=== PATIENT | male | born 1975 | race Hispanic/Latino ===

== ENCOUNTER 2017-04-13 15:10 | Inpatient (IN) | payer MEDICAID, OTHER ==
--- NOTE | 2017-04-13 15:59 | ED PDOC ---
Arrival/HPI - General Chief Complaint: Psychiatric Evaluation Time Seen by Provider: 04/13/17 15:12 Historian: Patient - History of Present Illness Narrative History of Present Illness (Text): 04/13/17 15:55 41yr old male presents today with brought in by ambulance for PES evaluation. pt with psychiatric hx found walking in the street acting bizarre. Pt states people are following him and that he has been trying to get in touch with the police for the past week. pt states he has been staying in his room. pt denies cp or sob. no vomiting/diarrhea. no dizziness. denies trauma or injury. Time/Duration: Prior to Arrival Past Medical History - Provider Review Nursing Documentation Reviewed: Yes - Travel History Have you recently traveled outside [place] w/in the past 3 mons?: No - Infectious Disease Hx of Infectious Diseases: None - Tetanus Immunization Tetanus Immunization: Unknown - Cardiac Hx Cardiac Disorders: No Hx Hypertension: No - Pulmonary Hx Tuberculosis: No - Neurological HX Cerebrovascular Accident: No Hx Seizures: No - Hematological/Oncological Hx Cancer: No - Genitourinary/Gynecological Hx Sexually Transmitted Diseases: No - Psychiatric Hx Depression: No Hx Emotional Abuse: No Hx Physical Abuse: No Hx Substance Use: (unknown) - Surgical History Other/Comment: neck surgery - Anesthesia Hx Anesthesia: Yes - Suicidal Assessment Feels Threatened In Home Enviroment: No Family/Social History - Physician Review Nursing Documentation Reviewed: Yes Family/Social History: Unknown Family HX Smoking Status: Heavy Smoker > 10 Cigarettes Daily Hx Alcohol Use: (unknown) Hx Substance Use: (unknown) Allergies/Home Meds Allergies/Adverse Reactions: Allergies No Known Allergies Allergy (Verified 04/13/17 21:19) Home Medications: Home Meds Medication Instructions Recorded Confirmed Unobtainable 07/22/16 04/13/17 Review of Systems - Review of Systems Systems not reviewed;Unavailable: Psychotic Respiratory: absent: SOB Cardiovascular: absent: Chest Pain Gastrointestinal: absent: Abdominal Pain Neurological: absent: Headache Psychiatric: absent: Anxiety, Suicidal Ideation Physical Exam Vital Signs Reviewed: Yes Vital Signs Temp Pulse Resp BP Pulse Ox 04/13/17 21:06 98.2 F 92 H 16 121/70 97 04/13/17 19:58 91 H 16 130/69 95 04/13/17 19:18 90 16 105/68 97 04/13/17 18:30 120 H 18 135/103 H 96 04/13/17 15:33 98.4 F 126 H 18 124/87 98 Temperature: Afebrile Blood Pressure: Normal Pulse: Tachycardic Respiratory Rate: Normal Appearance: Positive for: Well-Appearing, Non-Toxic, Comfortable Pain Distress: None Mental Status: Positive for: Alert and Oriented X 3 - Systems Exam Head: Present: Atraumatic Respiratory/Chest: Present: Clear to Auscultation Cardiovascular: Present: Tachycardic Abdomen: No: Tenderness Back: Present: Normal Inspection Upper Extremity: Present: Normal ROM Lower Extremity: Present: Normal ROM Neurological: Present: GCS=15 Skin: Present: Warm, Dry. No: Rashes Psychiatric: Present: Alert, Anxious, Delusional, Hallucinations, Other ( paranoid) Medical Decision Making ED Course and Treatment: 04/13/17 15:58 Patient is nontoxic well-appearing in no distress paranoid, anxious, answering questions in a bizarre manner, easily distracted. CBC wbc; 14.7 CMP glucose 67 CPK: 10,408 Tylenol WNL Salicylate WNL Alcohol level WNL Urine drug screen negative UA; blood, no leukocytes cxr: wnl ekg: sinus tachycardia at 119 bpm incomplete right bundle branch block and no ST elevations Patient was seen by PES director of securities and real estate [employer]is. Patient became aggressive in the emergency room. Geodon given. Restraints applied. pt in rhabdomyolysis. Normal saline IV bolus given case discussed with resident dr. argueta and dr. Camelia huber; accepts admission for rhabdo. pt will need psych eval. case discussed with dr. roberts. Impression; psychosis, rhabdomyolysis Admit med/surg - Lab Interpretations Lab Results: 04/13/17 16:25 04/13/17 16:25 Lab Results 04/13/17 16:25: Alcohol, Quantitative < 10 04/13/17 16:25: Salicylates < 1 L, Acetaminophen < 10.0 L 04/13/17 16:25: Sodium 142, Potassium 4.1, Chloride 103, Carbon Dioxide 24, Anion Gap 19, BUN 19, Creatinine 1.1, Est GFR ( Amer) > 60, Est GFR (Non- Af Amer) > 60, Random Glucose 67 L, Calcium 10.0, Total Bilirubin 1.6 H, AST 152 H, ALT 70 H, Alkaline Phosphatase 74, Total Creatine Kinase 82565 H, CK-MB ( CK-2) 5.9 H, CK-MB (CK-2) % 0.1 L, Total Protein 8.1, Albumin 4.8, Globulin 3.3 , Albumin/Globulin Ratio 1.5 04/13/17 16:25: WBC 14.7 H, RBC 5.54, Hgb 13.2 L, Hct 38.9 L, MCV 70.2 L, MCH 23.8 L, MCHC 33.9, RDW 14.3, Plt Count 358, MPV 8.7, Gran % 79.1 H, Lymph % ( Auto) 14.0 L, Barron % (Auto) 6.5 H, Eos % (Auto) 0.2 L, Baso % (Auto) 0.2, Gran # 11.62 H, Lymph # 2.1, Barron # 1.0 H, Eos # 0.0, Baso # 0.03 - RAD Interpretation Radiology Orders: 04/13/17 15:31 CHEST PORTABLE [RAD] Stat - Medication Orders Current Medication Orders: Folic Acid 1 mg/ Thiamine HCl 100 mg/ Multivitamins/Vitamin C 10 ml/ Dextrose 1 ,011.2 mls @ 100 mls/hr IV .Q10H7M [facility] Sodium Chloride (Sodium Chloride 0.9%) 1,000 mls @ 200 mls/hr IV .Q5H [facility] Folic Acid 1 mg/ Sodium (Chloride) 50.2 mls @ 200 mls/hr IV DAILY [facility]AD[facility] Dextrose/Sodium Chloride (Dextrose 5%/0.9% Ns 1000 Ml) 1,000 mls @ 100 mls/hr IV .Q10H [facility] Lorazepam (Ativan) 1 mg IVP Q4 PRN; Protocol PRN Reason: Symptoms of alcohol withdrawl Multivitamins/Minerals (Therapeutic-M Tab) 1 tab PO 0800 [facility] Ondansetron HCl (Zofran Inj) 4 mg IVP Q6 PRN PRN Reason: Nausea/Vomiting Pantoprazole Sodium (Protonix Ec Tab) 40 mg PO DAILY [facility] Thiamine HCl (Vitamin B1 Tab) 50 mg PO DAILY [facility] Ziprasidone (Geodon Inj) 20 mg IM Q6 PRN; Protocol PRN Reason: Agitation Discontinued Medications Sodium Chloride (Sodium Chloride 0.9%) 1,000 mls @ 999 mls/hr IV .Q1H1M STA Stop: 04/13/17 19:37 Last Admin: 04/13/17 18:51 Dose: 999 mls/hr Lorazepam (Ativan) 2 mg IM ONCE ONE PRN Reason: Protocol Stop: 04/13/17 18:19 Last Admin: 04/13/17 18:56 Dose: Lorazepam (Ativan) Confirm Administered Dose 2 mg .ROUTE .STK-MED ONE Stop: 04/13/17 18:20 Last Admin: 04/13/17 18:56 Dose: Ziprasidone (Geodon Inj) 20 mg IM STAT STA PRN Reason: Protocol Stop: 04/13/17 18:04 Last Admin: 04/13/17 18:29 Dose: 20 mg Disposition/Present on Arrival - Present on Arrival Any Indicators Present on Arrival: No History of DVT/PE: No History of Uncontrolled Diabetes: No Urinary Catheter: No History of Decub. Ulcer: No History Surgical Site Infection Following: None - Disposition Have Diagnosis and Disposition been Completed?: Yes Diagnosis: Rhabdomyolysis, Psychosis Disposition: HOSPITALIZED Disposition Time: 18:54 Patient Plan: Admission Patient Problems: Current Active Problems Problem Status Onset Psychosis Acute Rhabdomyolysis Acute Condition: FAIR
--- NOTE | 2017-04-13 16:20 | RAD ---
HISTORY: pes eval COMPARISON: Single frontal portable chest 07/23/2016. FINDINGS: LUNGS: No active pulmonary disease. PLEURA: No significant pleural effusion identified, no pneumothorax apparent. CARDIOVASCULAR: Normal. OSSEOUS STRUCTURES: Incidental note is made of prior cervical spinal fusion hardware, partially captured in this exam. VISUALIZED UPPER ABDOMEN: Normal. OTHER FINDINGS: None. IMPRESSION: No acute cardiopulmonary is appreciated or significant interval change 07/23/2016.
[2017-04-13 16:36] LABS: ADD MANUAL DIFF? NO
[2017-04-13 16:49] LABS: BASO # 0.03 K/mm3 (0.0-2.0); BASO % 0.2 % (0.0-3.0); EOS % 0.2 % (1.5-5.0); GRAN # 11.62 (1.4-6.5); GRAN % 79.1 % (50.0-68.0); HEMATOCRIT 38.9 % (42.0-52.0); LYMPH # 2.1 (1.2-3.4); MEAN CELL VOLUME 70.2 fL (80.0-105.0); MEAN CORPUSCULAR HEMOGLOBIN 23.8 pg (25.0-35.0); MEAN CORPUSCULAR HGB CONC 33.9 g/dl (31.0-37.0); MEAN PLATELET VOLUME 8.7 fl (7.0-11.0); MONO % 6.5 % (1.0-6.0); PLATELET COUNT 358 10^3/uL (120.0-450.0); RED CELL DISTRIBUTION WIDTH 14.3 % (11.5-14.5); WHITE BLOOD COUNT 14.7 10^3/ul (4.5-11.0)
[2017-04-13 16:51] LABS: ALB/GLOB RATIO 1.5 (1.1-1.8); ALKALINE PHOSPHATASE 74 U/L (38-133); ALT/SGPT 70 U/L (7-56); AST/SGOT 152 U/L (15-59); BILIRUBIN,TOTAL 1.6 mg/dL (0.2-1.3); BLOOD UREA NITROGEN 19 mg/dL (7-21); CARBON DIOXIDE 24 mmol/L (21-33); CHLORIDE 103 mmol/L (98-107); GFR AFRICAN-AMERICAN > 60; GLUCOSE,RANDOM 67 mg/dL (70-110); POTASSIUM 4.1 mmol/L (3.6-5.0); SODIUM 142 mmol/L (132-148); TOTAL PROTEIN 8.1 g/dL (5.8-8.3)
[2017-04-13] MEDS ORDERED: Sodium Chloride 0.9% 1,000 ML IV STA (18:37)
[2017-04-13] MEDS ORDERED: Folic Acid 1 MG, Thiamine 100 MG, Multivitamin (MVI) 10 ML in Dextrose 5% In Water 1,00... IV SCH (20:30)
[2017-04-13] MEDS ORDERED: Dextrose 5%/0.9% NS 1,000 ML IV SCH (20:45)
[2017-04-13 21:17] LABS: URINE BILIRUBIN SMALL (NEGATIVE); URINE BLOOD TRACE-INTACT (NEGATIVE); URINE GLUCOSE (UA) NEGATIVE (NEGATIVE); URINE KETONE NEGATIVE (NEGATIVE); URINE LEUKOCYTE ESTERASE NEGATIVE Leu/uL (NEGATIVE); URINE PROTEIN 30 mg/dL (<30 mg/dL); URINE UROBILINOGEN 0.2 E.U./dL (<1 E.U./dL)
[2017-04-13 21:31] LABS: URINE APPEARANCE CLEAR (CLEAR); URINE COLOR YELLOW (YELLOW)
[2017-04-13 21:45] VITALS: BMI 22.3
[2017-04-13 22:07] LABS: URINE BACTERIA MOD (NEG); URINE CALCIUM OXALATE CRYSTALS RARE /hpf; URINE RBC 0 - 2 /hpf (0-2); URINE WBC 0 - 2 /hpf (0-6)
[2017-04-13] MEDS ORDERED: Multivitamin (MVI) 10 ML, Thiamine 100 MG, Folic Acid 1 MG in Dextrose 5% In Water 1,00... IV ONE ×2 (23:35→23:51)
[2017-04-14] MEDS: Sodium Chloride 0.9% 1,000 ML IV SCH ×3 (01:19→11:48)
--- NOTE | 2017-04-14 01:39 | CP.PCM.HP ---
<DILEEP LOPEZ - Last Filed: 04/14/17 01:31> History of Present Illness - History of Present Illness History of Present Illness: CC: AMS HPI: Mr. Cottrell is a 41 year old with a PMH significant for drug induced mood disorder presented today after being brought in by ambulance for evaluation. Police found patient walking in the street acting bizarre. Patient states that people are following him and that he has been trying to get in touch with the police for the past week. He claims that this all started when he bought a new cell phone two days ago. Patient states has been staying in his room to ED physician but now reports that hes been helping his aunt move out of her house during this time. In ED, patient was found to have a CK of over 10,000. Patient denies headache, dizziness, changes in vision, chest pain, shortness of breath, abdominal pain, N/V, diarrhea or any trauma or injury PMH: Denies PSH: Denies Family History: non-contributory Social History: smokes 3 cigars per day, denies alcohol and any illicit drugs for over 8 months Allergies: NKDA Medications: none Present on Admission - Present on Admission Any Indicators Present on Admission: No Review of Systems - Review of Systems Review of Systems: Please refer to HPI Past Patient History - Infectious Disease Hx of Infectious Diseases: None - Tetanus Immunizations Tetanus Immunization: Unknown - Past Social History Smoking Status: Heavy Smoker > 10 Cigarettes Daily - CARDIAC Hx Cardiac Disorders: No Hx Hypertension: No - PULMONARY Hx Tuberculosis: No - NEUROLOGICAL HX Cerebrovascular Accident: No Hx Seizures: No - HEMATOLOGICAL/ONCOLOGICAL Hx Cancer: No - MUSCULOSKELETAL/RHEUMATOLOGICAL Hx Falls: No - GENITOURINARY/GYNECOLOGICAL Hx Sexually Transmitted Disorders: No - PSYCHIATRIC Hx Depression: No Hx Emotional Abuse: No Hx Physical Abuse: No Hx Substance Use: (unknown) - SURGICAL HISTORY Other/Comment: neck surgery - ANESTHESIA Hx Anesthesia: Yes Meds Allergies/Adverse Reactions: Allergies Allergy/AdvReac Type Severity Reaction Status Date / Time No Known Allergies Allergy Verified 04/13/17 21:19 Physical Exam - Constitutional Appears: No Acute Distress - Head Exam Head Exam: NORMAL INSPECTION, NORMOCEPHALIC - Eye Exam Eye Exam: EOMI, Normal appearance - ENT Exam ENT Exam: Mucous Membranes Moist, Normal Exam - Neck Exam Neck exam: Positive for: Full Rom. Negative for: Lymphadenopathy - Respiratory Exam Respiratory Exam: Clear to Auscultation Bilateral, NORMAL BREATHING PATTERN. absent: Rales, Rhonchi, Wheezes, Respiratory Distress - Cardiovascular Exam Cardiovascular Exam: REGULAR RHYTHM, RRR, +S1, +S2, Systolic Murmur - GI/Abdominal Exam GI & Abdominal Exam: Normal Bowel Sounds. absent: Distended, Firm, Tenderness - Extremities Exam Extremities exam: Positive for: normal capillary refill, pedal pulses present. Negative for: calf tenderness, pedal edema, tenderness - Neurological Exam Neurological exam: Alert - Psychiatric Exam Psychiatric exam: Normal Affect, Normal Mood - Skin Skin Exam: Dry, Intact, Normal Color, Warm Results - Vital Signs Recent Vital Signs: Last Vital Signs Temp 98.2 F 04/13/17 21:30 Pulse 92 H 04/13/17 21:30 Resp 16 04/13/17 21:30 BP 121/70 04/13/17 21:30 Pulse Ox 97 04/13/17 21:06 - Labs Result Diagrams: 04/13/17 16:25 04/13/17 16:25 Labs: Laboratory Results - last 24 hr 04/13/17 04/13/17 04/13/17 20:30 20:30 20:34 POC Glucose (mg/dL) 54 L Troponin I Urine Color Yellow Urine Appearance Clear Urine pH 6.0 Ur Specific [place] 1.025 Urine Protein 30 H Urine Glucose (UA) Negative Urine Ketones Negative Urine Blood Trace-intact H Urine Nitrate Negative Urine Bilirubin Small H Urine Urobilinogen 0.2 Ur Leukocyte Esterase Negative Urine RBC 0 - 2 Urine WBC 0 - 2 Ur Epithelial Cells None Calcium Oxalate Crystal Rare Urine Bacteria Mod Urine Opiates Screen Negative Urine Methadone Screen Negative Ur Barbiturates Screen Negative Ur Phencyclidine Scrn Negative Ur Amphetamines Screen Negative U Benzodiazepines Scrn Negative U Oth Cocaine Metabols Negative U Cannabinoids Screen Negative 04/13/17 04/13/17 20:56 23:50 POC Glucose (mg/dL) 89 Troponin I < 0.01 Urine Color Urine Appearance Urine pH Ur Specific [place] Urine Protein Urine Glucose (UA) Urine Ketones Urine Blood Urine Nitrate Urine Bilirubin Urine Urobilinogen Ur Leukocyte Esterase Urine RBC Urine WBC Ur Epithelial Cells Calcium Oxalate Crystal Urine Bacteria Urine Opiates Screen Urine Methadone Screen Ur Barbiturates Screen Ur Phencyclidine Scrn Ur Amphetamines Screen U Benzodiazepines Scrn U Oth Cocaine Metabols U Cannabinoids Screen Assessment & Plan - Assessment and Plan (Free Text) Assessment: Mr. Cottrell is a 41 year old man with a PMH significant for drug induced mood disorder presented today for AMS and later found to have elevated CK. Plan: 1. Rhabdomyolysis -normal saline 200mls/hour 2. Psychosis/Agitation -psychiatry consulted 3. History of Alcohol Abuse -banana bag, folate, thiamine, MV -Ativan PRN -Zofran PRN -CIWA, aspiration and seizure protocols 4. Leukocytosis -blood/urine culture -vital signs Q8 5. Elevated LFT's -hepatitis panel 6. GI/DVT Prophylaxis -protonix/scd's Patient seen and case discussed with attending, Dr. Rodriguez. - Date & Time Date: 04/14/17 Time: 01:41 Decision To Admit - Pt Status Changed To: Hospital Disposition Of: Observation - . Bed Request Type: Telemetry <Maci Rodriguez - Last Filed: 04/14/17 02:17> Results - Vital Signs Recent Vital Signs: Last Vital Signs Temp 98.2 F 04/13/17 21:30 Pulse 92 H 04/13/17 21:30 Resp 16 04/13/17 21:30 BP 121/70 04/13/17 21:30 Pulse Ox 97 04/13/17 21:06 - Labs Result Diagrams: 04/13/17 16:25 04/13/17 16:25 Labs: Laboratory Results - last 24 hr 04/13/17 04/13/17 04/13/17 20:30 20:30 20:34 POC Glucose (mg/dL) 54 L Troponin I Urine Color Yellow Urine Appearance Clear Urine pH 6.0 Ur Specific [place] 1.025 Urine Protein 30 H Urine Glucose (UA) Negative Urine Ketones Negative Urine Blood Trace-intact H Urine Nitrate Negative Urine Bilirubin Small H Urine Urobilinogen 0.2 Ur Leukocyte Esterase Negative Urine RBC 0 - 2 Urine WBC 0 - 2 Ur Epithelial Cells None Calcium Oxalate Crystal Rare Urine Bacteria Mod Urine Opiates Screen Negative Urine Methadone Screen Negative Ur Barbiturates Screen Negative Ur Phencyclidine Scrn Negative Ur Amphetamines Screen Negative U Benzodiazepines Scrn Negative U Oth Cocaine Metabols Negative U Cannabinoids Screen Negative 04/13/17 04/13/17 04/14/17 20:56 23:50 01:57 POC Glucose (mg/dL) 89 178 H Troponin I < 0.01 Urine Color Urine Appearance Urine pH Ur Specific [place] Urine Protein Urine Glucose (UA) Urine Ketones Urine Blood Urine Nitrate Urine Bilirubin Urine Urobilinogen Ur Leukocyte Esterase Urine RBC Urine WBC Ur Epithelial Cells Calcium Oxalate Crystal Urine Bacteria Urine Opiates Screen Urine Methadone Screen Ur Barbiturates Screen Ur Phencyclidine Scrn Ur Amphetamines Screen U Benzodiazepines Scrn U Oth Cocaine Metabols U Cannabinoids Screen
[2017-04-14] MEDS ORDERED: Oxycodone/Acetaminophen 5/325 mg Tab PO ONE ×2 (06:49→09:44)
[2017-04-14 07:37] LABS: ADD MANUAL DIFF? NO
[2017-04-14 07:43] LABS: BASO # 0.03 K/mm3 (0.0-2.0); BASO % 0.3 % (0.0-3.0); EOS # 0.2 (0.0-0.7); EOS % 1.3 % (1.5-5.0); GRAN # 8.53 (1.4-6.5); GRAN % 75.4 % (50.0-68.0); HEMATOCRIT 34.9 % (42.0-52.0); LYMPH # 1.9 (1.2-3.4); LYMPH % 16.7 % (22.0-35.0); MEAN CELL VOLUME 71.2 fL (80.0-105.0); MEAN CORPUSCULAR HEMOGLOBIN 23.3 pg (25.0-35.0); MEAN CORPUSCULAR HGB CONC 32.7 g/dl (31.0-37.0); MEAN PLATELET VOLUME 8.7 fl (7.0-11.0); MONO # 0.7 (0.1-0.6); MONO % 6.3 % (1.0-6.0); PLATELET COUNT 278 10^3/uL (120.0-450.0); RED CELL DISTRIBUTION WIDTH 14.5 % (11.5-14.5); WHITE BLOOD COUNT 11.3 10^3/ul (4.5-11.0)
[2017-04-14 07:53] LABS: ALB/GLOB RATIO 1.3 (1.1-1.8); ALKALINE PHOSPHATASE 50 U/L (38-133); ALT/SGPT 51 U/L (7-56); AST/SGOT 82 U/L (15-59); BILIRUBIN,TOTAL 1.2 mg/dL (0.2-1.3); BLOOD UREA NITROGEN 12 mg/dL (7-21); CALCIUM 8.6 mg/dL (8.4-10.5); CARBON DIOXIDE 24 mmol/L (21-33); CHLORIDE 106 mmol/L (98-107); GFR AFRICAN-AMERICAN > 60; GLUCOSE,RANDOM 73 mg/dL (70-110); PHOSPHOROUS 3.4 mg/dL (2.5-4.5); POTASSIUM 3.7 mmol/L (3.6-5.0); SODIUM 139 mmol/L (132-148); TOTAL PROTEIN 6.1 g/dL (5.8-8.3)
[2017-04-14] MEDS: Multivitamin With Minerals Tab PO SCH (09:57)
[2017-04-14] MEDS: Pantoprazole 40 mg EC Tab PO SCH (09:57)
[2017-04-14] MEDS ORDERED: Folic Acid 1 MG in Sodium Chloride 0.9% 50 ML IV SCH (10:00)
--- NOTE | 2017-04-14 16:32 | CP.PCM.PCO ---
Physician Communication Note - Physician Communication Note Physician Communication Note: will be seen tomorrow
--- NOTE | 2017-04-14 18:43 | CARD ---
APPROVED REPORT EKG Measurement Heart [id number] <Conclusion> Sinus tachycardia Incomplete right bundle branch block Borderline ECG
[2017-04-15] MEDS: Sodium Chloride 0.9% 1,000 ML IV SCH ×2 (01:28→21:37)
[2017-04-15 08:01] LABS: ADD MANUAL DIFF? NO
[2017-04-15 08:05] LABS: BASO # 0.04 K/mm3 (0.0-2.0); BASO % 0.6 % (0.0-3.0); EOS # 0.2 (0.0-0.7); EOS % 3.2 % (1.5-5.0); GRAN # 4.25 (1.4-6.5); GRAN % 60.9 % (50.0-68.0); HEMATOCRIT 32.8 % (42.0-52.0); LYMPH # 1.9 (1.2-3.4); LYMPH % 26.7 % (22.0-35.0); MEAN CELL VOLUME 72.2 fL (80.0-105.0); MEAN CORPUSCULAR HEMOGLOBIN 23.3 pg (25.0-35.0); MEAN CORPUSCULAR HGB CONC 32.3 g/dl (31.0-37.0); MEAN PLATELET VOLUME 8.7 fl (7.0-11.0); MONO # 0.6 (0.1-0.6); MONO % 8.6 % (1.0-6.0); PLATELET COUNT 252 10^3/uL (120.0-450.0); RED CELL DISTRIBUTION WIDTH 14.7 % (11.5-14.5)
[2017-04-15 08:57] LABS: ALKALINE PHOSPHATASE 48 U/L (38-133); ALT/SGPT 44 U/L (7-56); AST/SGOT 40 U/L (15-59); BILIRUBIN,TOTAL 0.2 mg/dL (0.2-1.3); BLOOD UREA NITROGEN 7 mg/dL (7-21); CALCIUM 7.9 mg/dL (8.4-10.5); CARBON DIOXIDE 24 mmol/L (21-33); CHLORIDE 110 mmol/L (95-110); GFR AFRICAN-AMERICAN > 60; GLUCOSE,RANDOM 85 mg/dL (70-110); PHOSPHOROUS 3.5 mg/dL (2.5-4.5); POTASSIUM 3.9 mmol/L (3.6-5.0); SODIUM 141 mmol/L (132-148); TOTAL PROTEIN 5.2 g/dL (5.8-8.3)
[2017-04-15] MEDS: Pantoprazole 40 mg EC Tab PO SCH (09:02)
[2017-04-15] MEDS: Multivitamin With Minerals Tab PO SCH (09:02)
[2017-04-15 09:10] LABS: ALB/GLOB RATIO 1.3 (1.1-1.8)
--- NOTE | 2017-04-15 16:57 | CON ---
HISTORY OF PRESENT ILLNESS: The patient is a [id number] male with reported history of synthetic drugs. The patient used Monica in the past. The patient was admitted on the medical side for rhabdomyolysis. Consult was on hold for evaluation of bizarre behavior. The patient denied being depressed. The patient denied thoughts of killing himself or others. The patient denies feeling anxious. The patient reports to have a good apatite and sleep. The patient said that he never followed with AA meeting and NA meetings after psychiatric admission, which took place in [facility] about a year ago. The patient said he cannot work because of his neck injury, and the patient reports that he got settlement and he has future plans to move with his family in [place], besides that there is no new changes with the patient's presentation to compare with the last admission to the psychiatric inpatient unit. The patient was seen and examined today. The patient presented to be alert and oriented. The patient has intense eye contact but was not overly psychotic. The patient remembered this marketing underwriter by name. The patient reported that he was doing well recently. The patient denies any substance use. When this marketing underwriter asked any specific reason why he stopped using, the patient said "because doctor advised me not to." At the same time, this marketing underwriter is doubting the patient is not using any drugs and urine drug screen is negative because the patient was using synthetic drugs which will be not positive in the urine. PHYSICAL EXAMINATION: Vital signs are stable. MEDICATIONS: Reviewed. The patient is on Neurontin, Ativan, did not ask for any Ativan. The patient is on Geodon. The patient was not agitated. The patient is on sodium chloride, Protonix and Zofran. LABORATORY DATA: Labs reviewed. WBC is within normal limits today of 7.0. Hemoglobin and hematocrit is 10.6 and 32.8. Chemistry: Creatine kinase is trending down, today is 1078. Urinalysis showed blood. Toxicology is negative for any substances, but the patient has history of using synthetic drugs. PAST PSYCHIATRIC HISTORY: As this marketing underwriter mentioned above, the patient has history being admitted to the psychiatric inpatient unit in 03/2016. The patient stayed in the hospital only for 2 days, was discharged against medical advice. MENTAL STATUS EXAMINATION: The patient appears to be alert. Personal hygiene is fair, intense eye contact at times. Speech was under productive, he has no answers. Mood described, "I feel alright." Affect was constricted, but reactive mood congruent. Thought process was concrete. Thought content, the patient denied visual, auditory, or tactile hallucinations. Denies paranoid ideation. The patient denied thoughts of harming himself or others. Denied intents or plan. Insight and judgement are fair. Impulses are well controlled. IMPRESSION: The patient has multiple medical issues. The patient has history of synthetic drug use, rule out substance-induced psychosis which is improving. The patient also might have delirium due to rhabdomyolysis. PLAN: The patient has not exceeded any psychotic symptoms. Denied being depressed. Denied both of harming himself or others. At present moment, the patient does not present to be in any danger to self or others. The patient was advised to stay away from drugs, go to AA meeting and NA meeting. This marketing underwriter will sign off. Should you have any questions, give me a call back. Nemo Perla MD
--- NOTE | 2017-04-15 17:40 | CP.PCM.PN ---
<Nisa Meade - Last Filed: 04/16/17 00:24> Subjective - Date & Time of Evaluation Date of Evaluation: 04/15/17 Time of Evaluation: 17:37 - Subjective Subjective: Patient c/o back pain, states its chronic in nature, relieved with medication administered IV last night. Objective - Vital Signs/Intake and Output Vital Signs (last 24 hours): Temp Pulse Resp BP Pulse Ox 97.8 F 60 20 100/66 99 04/15/17 08:07 04/15/17 08:07 04/15/17 08:07 04/15/17 08:07 04/15/17 08:07 Intake and Output: 04/15/17 04/15/17 06:59 18:59 Intake Total 3360 120 Output Total 3200 1000 Balance 160 -880 - Medications Medications: Current Medications Gabapentin (Neurontin) 100 mg PO TID [facility] PRN Reason: Protocol Last Admin: 04/15/17 15:10 Dose: 100 mg Sodium Chloride (Sodium Chloride 0.9%) 1,000 mls @ 200 mls/hr IV .Q5H [facility] Last Admin: 04/15/17 01:28 Dose: Not Given Lorazepam (Ativan) 1 mg IVP Q4 PRN; Protocol PRN Reason: Symptoms of alcohol withdrawl Multivitamins/Minerals (Therapeutic-M Tab) 1 tab PO 0800 [facility] Last Admin: 04/15/17 09:02 Dose: 1 tab Ondansetron HCl (Zofran Inj) 4 mg IVP Q6 PRN PRN Reason: Nausea/Vomiting Pantoprazole Sodium (Protonix Ec Tab) 40 mg PO DAILY [facility] Last Admin: 04/15/17 09:02 Dose: 40 mg Ziprasidone (Geodon Inj) 20 mg IM Q6 PRN; Protocol PRN Reason: Agitation - Labs Labs: 04/15/17 07:30 04/15/17 07:30 - Constitutional Appears: Well, Non-toxic, No Acute Distress - Head Exam Head Exam: ATRAUMATIC, NORMOCEPHALIC - Eye Exam Eye Exam: EOMI, Normal appearance - ENT Exam ENT Exam: Mucous Membranes Moist, Normal Oropharynx - Neck Exam Neck Exam: Normal Inspection. absent: Meningismus, Thyromegaly - Respiratory Exam Respiratory Exam: Clear to Ausculation Bilateral, NORMAL BREATHING PATTERN. absent: Rales, Rhonchi - Cardiovascular Exam Cardiovascular Exam: RRR, +S1, +S2 - GI/Abdominal Exam GI & Abdominal Exam: Soft, Normal Bowel Sounds. absent: Organomegaly - Rectal Exam Rectal Exam: Deferred - Neurological Exam Neurological Exam: Alert, CN II-XII Intact, Oriented x3 - Psychiatric Exam Psychiatric exam: Normal Affect, Normal Mood - Skin Skin Exam: Dry, Intact, Normal Color Assessment and Plan - Assessment and Plan (Free Text) Assessment: Mr. Cottrell is a 41 year old man with a PMH significant for drug induced mood disorder presented today for AMS and later found to have elevated CK. Plan: 1. Rhabdomyolysis -normal saline 200mls/hour - total CK has become 1/10 of its original value, will check AM labs to see complete/near complete resolution of the rhabdomyolysis. 2. Psychosis/Agitation -psychiatry consulted, appreciate the recommendations. 3. History of Alcohol Abuse -MVI -Ativan PRN -Zofran PRN -CIWA of zero, aspiration and seizure protocols 4. Leukocytosis -blood/urine culture negative -vital signs Q8 5. Elevated LFT's -reactive/drug induced, resolve with fluids - Hepatitis panel negative 6. GI/DVT Prophylaxis -protonix/scd's <Amador Gutierrez - Last Filed: 04/16/17 07:47> Objective - Vital Signs/Intake and Output Vital Signs (last 24 hours): Temp Pulse Resp BP Pulse Ox 98.8 F 63 18 119/83 998 H 04/15/17 16:00 04/15/17 16:00 04/15/17 16:00 04/15/17 16:00 04/15/17 16:00 Intake and Output: 04/16/17 04/16/17 06:59 18:59 Intake Total 3800 Output Total 3600 Balance 200 - Medications Medications: Current Medications Gabapentin (Neurontin) 100 mg PO TID [facility] PRN Reason: Protocol Last Admin: 04/15/17 18:42 Dose: 100 mg Sodium Chloride (Sodium Chloride 0.9%) 1,000 mls @ 200 mls/hr IV .Q5H [facility] Last Admin: 04/16/17 04:31 Dose: 200 mls/hr Lorazepam (Ativan) 1 mg IVP Q4 PRN; Protocol PRN Reason: Symptoms of alcohol withdrawl Multivitamins/Minerals (Therapeutic-M Tab) 1 tab PO 0800 [facility] Last Admin: 04/15/17 09:02 Dose: 1 tab Ondansetron HCl (Zofran Inj) 4 mg IVP Q6 PRN PRN Reason: Nausea/Vomiting Pantoprazole Sodium (Protonix Ec Tab) 40 mg PO DAILY [facility] Last Admin: 04/15/17 09:02 Dose: 40 mg Ziprasidone (Geodon Inj) 20 mg IM Q6 PRN; Protocol PRN Reason: Agitation - Labs Labs: 04/16/17 06:45 04/16/17 06:45 Attending/Attestation - Attestation I have personally seen and examined this patient.: Yes I have fully participated in the care of the patient.: Yes I have reviewed all pertinent clinical information, including history, physical exam and plan: Yes Notes (Text): 04/15/17 41 year old male with past with history of substance/alcohol abuse who presented with altered mental status and agitation. He was found to have rhabdomyolysis and started on iv fluids. His CPK is improving. LFTs have improved. Leukocytosis has resolved. Mental status has improved to baseline. He is being seen by the psychiatrist today. He was counselled on alcohol abstinence and on risks of continued substance abuse. Likely d/c planning in 24 hrs if CPK continue to improve. Amador Gutierrez MD Hospitalist.
[2017-04-16] MEDS: Sodium Chloride 0.9% 1,000 ML IV SCH ×3 (00:40→11:06)
[2017-04-16 07:15] LABS: ADD MANUAL DIFF? NO
[2017-04-16 07:22] LABS: BASO # 0.04 K/mm3 (0.0-2.0); BASO % 0.6 % (0.0-3.0); EOS # 0.2 (0.0-0.7); EOS % 3.3 % (1.5-5.0); HEMATOCRIT 34.1 % (42.0-52.0); LYMPH # 1.5 (1.2-3.4); LYMPH % 22.2 % (22.0-35.0); MEAN CELL VOLUME 72.9 fL (80.0-105.0); MEAN CORPUSCULAR HEMOGLOBIN 23.5 pg (25.0-35.0); MEAN CORPUSCULAR HGB CONC 32.3 g/dl (31.0-37.0); MEAN PLATELET VOLUME 9.1 fl (7.0-11.0); MONO # 0.4 (0.1-0.6); MONO % 5.9 % (1.0-6.0); PLATELET COUNT 280 10^3/uL (120.0-450.0); RED CELL DISTRIBUTION WIDTH 14.9 % (11.5-14.5); WHITE BLOOD COUNT 6.6 10^3/ul (4.5-11.0)
[2017-04-16 07:36] LABS: ALB/GLOB RATIO 1.1 (1.1-1.8); ALKALINE PHOSPHATASE 49 U/L (38-133); ALT/SGPT 42 U/L (7-56); AST/SGOT 37 U/L (15-59); BILIRUBIN,TOTAL 0.2 mg/dL (0.2-1.3); BLOOD UREA NITROGEN 6 mg/dL (7-21); CALCIUM 8.3 mg/dL (8.4-10.5); CARBON DIOXIDE 27 mmol/L (21-33); CHLORIDE 110 mmol/L (98-107); GFR AFRICAN-AMERICAN > 60; GLUCOSE,RANDOM 82 mg/dL (70-110); MAGNESIUM 2.1 mg/dL (1.7-2.2); PHOSPHOROUS 3.4 mg/dL (2.5-4.5); POTASSIUM 3.9 mmol/L (3.6-5.0); SODIUM 141 mmol/L (132-148); TOTAL PROTEIN 5.4 g/dL (5.8-8.3)
--- NOTE | 2017-04-16 08:43 | CP.PCM.DIS ---
<Nisa Meade - Last Filed: 04/16/17 09:01> Provider - Provider Date of Admission: 04/13/17 19:47 Attending physician: Amador Gutierrez MD Primary care physician: Jeffry Profile Required Consults: Dr. Nemo Vincent Time Spent in preparation of Discharge (in minutes): 45 Hospital Course - Lab Results Lab Results: Micro Results 04/14/17 02:00 Urine Urine Culture - Final No Growth (<1,000 CFU/ML) Most Recent Lab Values WBC 6.6 10^3/ul (4.5-11.0) 04/16/17 06:45 RBC 4.68 10^6/uL (3.5-6.1) 04/16/17 06:45 Hgb 11.0 gm/dL (14.0-18.0) L 04/16/17 06:45 Hct 34.1 % (42.0-52.0) L 04/16/17 06:45 MCV 72.9 fL (80.0-105.0) L 04/16/17 06:45 MCH 23.5 pg (25.0-35.0) L 04/16/17 06:45 MCHC 32.3 g/dl (31.0-37.0) 04/16/17 06:45 RDW 14.9 % (11.5-14.5) H 04/16/17 06:45 Plt Count 280 10^3/uL (120.0-450.0) 04/16/17 06:45 MPV 9.1 fl (7.0-11.0) 04/16/17 06:45 Gran % 68.0 % (50.0-68.0) 04/16/17 06:45 Lymph % (Auto) 22.2 % (22.0-35.0) 04/16/17 06:45 [place] % (Auto) 5.9 % (1.0-6.0) 04/16/17 06:45 Eos % (Auto) 3.3 % (1.5-5.0) 04/16/17 06:45 Baso % (Auto) 0.6 % (0.0-3.0) 04/16/17 06:45 Gran # 4.50 (1.4-6.5) 04/16/17 06:45 Lymph # 1.5 (1.2-3.4) 04/16/17 06:45 Grayson # 0.4 (0.1-0.6) 04/16/17 06:45 Eos # 0.2 (0.0-0.7) 04/16/17 06:45 Baso # 0.04 K/mm3 (0.0-2.0) 04/16/17 06:45 Sodium 141 mmol/L (132-148) 04/16/17 06:45 Potassium 3.9 mmol/L (3.6-5.0) 04/16/17 06:45 Chloride 110 mmol/L (98-107) H 04/16/17 06:45 Carbon Dioxide 27 mmol/L (21-33) 04/16/17 06:45 Anion Gap 8 (10-20) L 04/16/17 06:45 BUN 6 mg/dL (7-21) L 04/16/17 06:45 Creatinine 0.9 mg/dL (0.5-1.4) 04/16/17 06:45 Est GFR ( Amer) > 60 04/16/17 06:45 Est GFR (Non-Af Amer) > 60 04/16/17 06:45 POC Glucose (mg/dL) 178 mg/dL (65-110) H 04/14/17 01:57 Random Glucose 82 mg/dL (70-110) 04/16/17 06:45 Hemoglobin A1c 5.7 % (4.2-6.5) 04/14/17 07:00 Calcium 8.3 mg/dL (8.4-10.5) L 04/16/17 06:45 Phosphorus 3.4 mg/dL (2.5-4.5) 04/16/17 06:45 Magnesium 2.1 mg/dL (1.7-2.2) 04/16/17 06:45 Total Bilirubin 0.2 mg/dL (0.2-1.3) 04/16/17 06:45 AST 37 U/L (15-59) 04/16/17 06:45 ALT 42 U/L (7-56) 04/16/17 06:45 Alkaline Phosphatase 49 U/L (38-133) 04/16/17 06:45 Total Creatine Kinase 442 U/L (35-230) H 04/16/17 06:45 CK-MB (CK-2) 1.2 ng/mL (0.0-3.6) 04/16/17 06:45 CK-MB (CK-2) % Cancelled 04/15/17 07:30 Troponin I < 0.01 ng/mL 04/13/17 23:50 Total Protein 5.4 g/dL (5.8-8.3) L 04/16/17 06:45 Albumin 2.9 g/dL (3.0-4.8) L 04/16/17 06:45 Globulin 2.6 gm/dL 04/16/17 06:45 Albumin/Globulin Ratio 1.1 (1.1-1.8) 04/16/17 06:45 Procalcitonin < 0.05 NG/ML (0.19-0.49) L 04/13/17 20:40 Urine Color Yellow (YELLOW) 04/13/17 20:30 Urine Appearance Clear (CLEAR) 04/13/17 20:30 Urine pH 6.0 (4.7-8.0) 04/13/17 20:30 Ur Specific [place] 1.025 (1.005-1.035) 04/13/17 20:30 Urine Protein 30 mg/dL (<30 mg/dL) H 04/13/17 20:30 Urine Glucose (UA) Negative mg/dL (NEGATIVE) 04/13/17 20:30 Urine Ketones Negative mg/dL (NEGATIVE) 04/13/17 20:30 Urine Blood Trace-intact (NEGATIVE) H 04/13/17 20:30 Urine Nitrate Negative (NEGATIVE) 04/13/17 20:30 Urine Bilirubin Small (NEGATIVE) H 04/13/17 20:30 Urine Urobilinogen 0.2 E.U./dL (<1 E.U./dL) 04/13/17 20:30 Ur Leukocyte Esterase Negative [place]/uL (NEGATIVE) 04/13/17 20:30 Urine RBC 0 - 2 /hpf (0-2) 04/13/17 20:30 Urine WBC 0 - 2 /hpf (0-6) 04/13/17 20:30 Ur Epithelial Cells None /hpf (0-5) 04/13/17 20:30 Calcium Oxalate Crystal Rare /hpf 04/13/17 20:30 Urine Bacteria Mod (NEG) 04/13/17 20:30 Salicylates < 1 mg/dL (2.0-20.0) L 04/13/17 16:25 Urine Opiates Screen Negative (NEGATIVE) 04/13/17 20:30 Urine Methadone Screen Negative (NEGATIVE) 04/13/17 20:30 Acetaminophen < 10.0 ug/ml (10.0-20.0) L 04/13/17 16:25 Ur Barbiturates Screen Negative (NEGATIVE) 04/13/17 20:30 Ur Phencyclidine Scrn Negative (NEGATIVE) 04/13/17 20:30 Ur Amphetamines Screen Negative (NEGATIVE) 04/13/17 20:30 U Benzodiazepines Scrn Negative (NEGATIVE) 04/13/17 20:30 U Oth Cocaine Metabols Negative (NEGATIVE) 04/13/17 20:30 U Cannabinoids Screen Negative (NEGATIVE) 04/13/17 20:30 Alcohol, Quantitative < 10 mg/dL (0-10) 04/13/17 16:25 Hepatitis A IgM Ab Negative (NEGATIVE) 04/14/17 07:00 Hep Bs Antigen Negative (NEGATIVE) 04/14/17 07:00 Hep B Core IgM Ab Negative (NEGATIVE) 04/14/17 07:00 Hepatitis C Antibody Negative (NEGATIVE) 04/14/17 07:00 - Hospital Course Hospital Course: 41 year old male with past history of substance/alcohol abuse who presented with altered mental status and agitation. He was found to have rhabdomyolysis was started on IV fluids. During his hospital course his CPK has fell from 10, 000 to less than 500, leukocytosis has resolved, and his LFTs have normalized. Mental status has improved to baseline, psychiatrist has seen the patient and provided their recommendations He was counselled on alcohol abstinence and on risks of continued substance abuse. - Date & Time of H&P Date of H&P: 04/16/17 Time of H&P: 08:47 Discharge Exam - Head Exam Head Exam: ATRAUMATIC, NORMOCEPHALIC - Eye Exam Eye Exam: EOMI, Normal appearance, PERRL - ENT Exam ENT Exam: Mucous Membranes Moist, Normal Oropharynx - Neck Exam Neck exam: Normal Inspection - Respiratory Exam Respiratory Exam: NORMAL BREATHING PATTERN. absent: Accessory Muscle Use, Chest Wall Tenderness - Cardiovascular Exam Cardiovascular Exam: RRR, +S1, +S2 - GI/Abdominal Exam GI & Abdominal Exam: Normal Bowel Sounds, Unremarkable. absent: Guarding, Rebound - Rectal Exam Rectal Exam: Deferred - Neurological Exam Neurological exam: CN II-XII Intact, Oriented x3 - Psychiatric Exam Psychiatric exam: Normal Affect, Normal Mood Discharge Plan - Discharge Medications Prescriptions: RX: Gabapentin [Neurontin] 100 mg PO TID #90 capsule - Follow Up Plan Condition: FAIR Disposition: HOME/ ROUTINE Patient education suggested?: Yes Instructions: Depression (DC), Abuse of Alcohol (DC) Additional Instructions: Patient instructed to go to Alcohol Anonymous and Narcotic Anonymous meetings. Establish care with a psychiatrist and follow up with his PMD with 2 weeks. Avoid drugs, toxins, and stay well hydrated and avoid drinking alcohol or substance use/abuse at all cost. Referrals: [facility], [Non-Staff] - <Amador Gutierrez - Last Filed: 04/16/17 16:56> Provider - Provider Date of Admission: 04/13/17 19:47 Attending physician: Amador Gutierrez MD Hospital Course - Lab Results Lab Results: Micro Results 04/14/17 02:00 Urine Urine Culture - Final No Growth (<1,000 CFU/ML) Most Recent Lab Values WBC 6.6 10^3/ul (4.5-11.0) 04/16/17 06:45 RBC 4.68 10^6/uL (3.5-6.1) 04/16/17 06:45 Hgb 11.0 gm/dL (14.0-18.0) L 04/16/17 06:45 Hct 34.1 % (42.0-52.0) L 04/16/17 06:45 MCV 72.9 fL (80.0-105.0) L 04/16/17 06:45 MCH 23.5 pg (25.0-35.0) L 04/16/17 06:45 MCHC 32.3 g/dl (31.0-37.0) 04/16/17 06:45 RDW 14.9 % (11.5-14.5) H 04/16/17 06:45 Plt Count 280 10^3/uL (120.0-450.0) 04/16/17 06:45 MPV 9.1 fl (7.0-11.0) 04/16/17 06:45 Gran % 68.0 % (50.0-68.0) 04/16/17 06:45 Lymph % (Auto) 22.2 % (22.0-35.0) 04/16/17 06:45 [place] % (Auto) 5.9 % (1.0-6.0) 04/16/17 06:45 Eos % (Auto) 3.3 % (1.5-5.0) 04/16/17 06:45 Baso % (Auto) 0.6 % (0.0-3.0) 04/16/17 06:45 Gran # 4.50 (1.4-6.5) 04/16/17 06:45 Lymph # 1.5 (1.2-3.4) 04/16/17 06:45 Grayson # 0.4 (0.1-0.6) 04/16/17 06:45 Eos # 0.2 (0.0-0.7) 04/16/17 06:45 Baso # 0.04 K/mm3 (0.0-2.0) 04/16/17 06:45 Sodium 141 mmol/L (132-148) 04/16/17 06:45 Potassium 3.9 mmol/L (3.6-5.0) 04/16/17 06:45 Chloride 110 mmol/L (98-107) H 04/16/17 06:45 Carbon Dioxide 27 mmol/L (21-33) 04/16/17 06:45 Anion Gap 8 (10-20) L 04/16/17 06:45 BUN 6 mg/dL (7-21) L 04/16/17 06:45 Creatinine 0.9 mg/dL (0.5-1.4) 04/16/17 06:45 Est GFR ( Amer) > 60 04/16/17 06:45 Est GFR (Non-Af Amer) > 60 04/16/17 06:45 POC Glucose (mg/dL) 178 mg/dL (65-110) H 04/14/17 01:57 Random Glucose 82 mg/dL (70-110) 04/16/17 06:45 Hemoglobin A1c 5.7 % (4.2-6.5) 04/14/17 07:00 Calcium 8.3 mg/dL (8.4-10.5) L 04/16/17 06:45 Phosphorus 3.4 mg/dL (2.5-4.5) 04/16/17 06:45 Magnesium 2.1 mg/dL (1.7-2.2) 04/16/17 06:45 Total Bilirubin 0.2 mg/dL (0.2-1.3) 04/16/17 06:45 AST 37 U/L (15-59) 04/16/17 06:45 ALT 42 U/L (7-56) 04/16/17 06:45 Alkaline Phosphatase 49 U/L (38-133) 04/16/17 06:45 Total Creatine Kinase 442 U/L (35-230) H 04/16/17 06:45 CK-MB (CK-2) 1.2 ng/mL (0.0-3.6) 04/16/17 06:45 CK-MB (CK-2) % Cancelled 04/15/17 07:30 Troponin I < 0.01 ng/mL 04/13/17 23:50 Total Protein 5.4 g/dL (5.8-8.3) L 04/16/17 06:45 Albumin 2.9 g/dL (3.0-4.8) L 04/16/17 06:45 Globulin 2.6 gm/dL 04/16/17 06:45 Albumin/Globulin Ratio 1.1 (1.1-1.8) 04/16/17 06:45 Procalcitonin < 0.05 NG/ML (0.19-0.49) L 04/13/17 20:40 Urine Color Yellow (YELLOW) 04/13/17 20:30 Urine Appearance Clear (CLEAR) 04/13/17 20:30 Urine pH 6.0 (4.7-8.0) 04/13/17 20:30 Ur Specific [place] 1.025 (1.005-1.035) 04/13/17 20:30 Urine Protein 30 mg/dL (<30 mg/dL) H 04/13/17 20:30 Urine Glucose (UA) Negative mg/dL (NEGATIVE) 04/13/17 20:30 Urine Ketones Negative mg/dL (NEGATIVE) 04/13/17 20:30 Urine Blood Trace-intact (NEGATIVE) H 04/13/17 20:30 Urine Nitrate Negative (NEGATIVE) 04/13/17 20:30 Urine Bilirubin Small (NEGATIVE) H 04/13/17 20:30 Urine Urobilinogen 0.2 E.U./dL (<1 E.U./dL) 04/13/17 20:30 Ur Leukocyte Esterase Negative [place]/uL (NEGATIVE) 04/13/17 20:30 Urine RBC 0 - 2 /hpf (0-2) 04/13/17 20:30 Urine WBC 0 - 2 /hpf (0-6) 04/13/17 20:30 Ur Epithelial Cells None /hpf (0-5) 04/13/17 20:30 Calcium Oxalate Crystal Rare /hpf 04/13/17 20:30 Urine Bacteria Mod (NEG) 04/13/17 20:30 Salicylates < 1 mg/dL (2.0-20.0) L 04/13/17 16:25 Urine Opiates Screen Negative (NEGATIVE) 04/13/17 20:30 Urine Methadone Screen Negative (NEGATIVE) 04/13/17 20:30 Acetaminophen < 10.0 ug/ml (10.0-20.0) L 04/13/17 16:25 Ur Barbiturates Screen Negative (NEGATIVE) 04/13/17 20:30 Ur Phencyclidine Scrn Negative (NEGATIVE) 04/13/17 20:30 Ur Amphetamines Screen Negative (NEGATIVE) 04/13/17 20:30 U Benzodiazepines Scrn Negative (NEGATIVE) 04/13/17 20:30 U Oth Cocaine Metabols Negative (NEGATIVE) 04/13/17 20:30 U Cannabinoids Screen Negative (NEGATIVE) 04/13/17 20:30 Alcohol, Quantitative < 10 mg/dL (0-10) 04/13/17 16:25 Hepatitis A IgM Ab Negative (NEGATIVE) 04/14/17 07:00 Hep Bs Antigen Negative (NEGATIVE) 04/14/17 07:00 Hep B Core IgM Ab Negative (NEGATIVE) 04/14/17 07:00 Hepatitis C Antibody Negative (NEGATIVE) 04/14/17 07:00 Attending/Attestation - Attestation I have personally seen and examined this patient.: Yes I have fully participated in the care of the patient.: Yes I have reviewed all pertinent clinical information, including history, physical exam and plan: Yes Notes (Text): 04/16/17 16:53 41 year old male with past with history of substance/alcohol abuse who presented with altered mental status and agitation possibly due to alcohol/ substance abuse. He was found to have rhabdomyolysis and started on iv fluids. His CPK, LFTs, and leukocytosis has resolved. Mental status has improved to baseline. Psychiatry evaluation was appreciated. He has been counselled on alcohol abstinence. He was counselled on risks of continued substance abuse. He will be discharged home to follow up with his pmd. Encouraged po hydration/intake. Amador Gutierrez MD Hospitalist.
[2017-04-16] MEDS: Multivitamin With Minerals Tab PO SCH (09:06)
[2017-04-16] MEDS: Pantoprazole 40 mg EC Tab PO SCH (11:35)
[2017-04-16 12:23] VITALS: BP 110/78; PULSE 60; RESP 20; TEMP 98; O2SAT 97
== END 2017-04-16 18:04 | disposition home or self-care (01) | DRG 558 ==
LOC: ED 15:10 → ERH 19:47 → 3RNO 21:25
PROVIDERS: ADMIT Internal Medicine; ATTEND Internal Medicine
DX: M62.82 Rhabdomyolysis (principal); D72.829 Elevated white blood cell count, unspecified; F17.290 Nicotine dependence, other tobacco product, uncomplicated; M54.9 Dorsalgia, unspecified; F29 Unspecified psychosis not due to a substance or known physiological condition; F10.10 Alcohol abuse, uncomplicated; F19.10 Other psychoactive substance abuse, uncomplicated; Y90.0 Blood alcohol level of less than 20 mg/100 ml